=== PATIENT | female | born 1985 | race Caucasian/White ===

== ENCOUNTER 2021-10-09 10:19 | Emergency (ER) | payer MEDICAID ==
[~2021-10-09] VITALS: Ht 167.6 cm; Wt 84.5 kg
[2021-10-09 10:42] VITALS: BP 118/65
[2021-10-09] MEDS ORDERED: predniSONE 20 mg tablet PO ONE (10:50)
[2021-10-09] MEDS ORDERED: ipratropium/albuterol 3ml nebule NEB ONE (10:50)
[2021-10-09] MEDS ORDERED: LORazepam 1 MG tablet PO ONE (11:30)
[2021-10-09] MEDS ORDERED: ALBU8HFA PO (11:50)
== END 2021-10-09 12:24 | disposition home or self-care (01) ==
LOC: ER 10:20
DX: J45.909 Unspecified asthma, uncomplicated (principal); F41.9 Anxiety disorder, unspecified; F17.200 Nicotine dependence, unspecified, uncomplicated; F12.90 Cannabis use, unspecified, uncomplicated; Z88.5 Allergy status to narcotic agent
CPT/HCPCS: 71045; 94640; 99283; J7512; 94760